=== PATIENT | female | born 1990 | race Two or more races ===

== ENCOUNTER 2020-01-08 23:16 | Emergency (ER) | payer OTHER ==
[~2020-01-08] VITALS: Ht 157.5 cm; Wt 80.0 kg
--- NOTE | 2020-01-08 23:43 | NUR ---
PT HAS RESPIRATORY SYMPTOM. DISCUSSED WITH PROVIDER TO WAIT UNTIL PT HAS ROOM, THEN US CAN BE DONE AT BED SIDE - US DELAY
[2020-01-08 23:51] LABS: BASOPHILS % (AUTO) 1 % (0-1); EOSINOPHILS % (AUTO) 0 % (1-7); LYMPHOCYTES % (AUTO) 16 % (22-44); MD NO; MEAN CORPUSCULAR HEMOGLOBIN 30.4 pg (27.0-34.8); MEAN PLATELET VOLUME 8.5 fL (7.4-10.4); MONOCYTES % (AUTO) 6 % (2-9); NEUTROPHILS % (AUTO) 77 % (42-75); PLATELET COUNT 379 x10^3/uL (130-400); RED BLOOD COUNT 5.06 x10^6/uL (3.82-5.3); RED CELL DISTRIBUTION WIDTH 13.1 % (9.6-15.2)
[2020-01-09 00:02] LABS: ALANINE AMINOTRANSFERASE 176 U/L (12-78); ALBUMIN 4.1 g/dL (3.4-5.0); ANION GAP 10 mmol/L (5-15); CALCIUM 8.9 mg/dL (8.5-10.1); CHLORIDE 104 mmol/L (98-107); CREATININE 0.78 mg/dL (0.55-1.02)
[2020-01-09 00:07] LABS: ALKALINE PHOSPHATASE 102 U/L (45-117); BILIRUBIN,TOTAL 0.9 mg/dL (0.2-1.0); TOTAL PROTEIN 8.9 g/dL (6.4-8.2)
--- NOTE | 2020-01-09 00:20 | NUR ---
JUNIOR PARALEGAL: PT WALKED BACK FROM LOBBY TO ROOM AT THIS TIME.
[2020-01-09] MEDS ORDERED: LORazepam 1MG TABLET ONE (00:41)
--- NOTE | 2020-01-09 00:45 | NUR ---
PT STATES SHE HAD AN IUD PLACED SEVERAL DAYS AGO AND SINCE THEN HAS HAD INCREASING VAG BLEEDING AND INCREASING ANXIETY. PT WITH RAPID HR AND RAPID BREATHING. PT ATTACHED TO ALL MONITORS. PT VERBALIZES ANXIETY IS BIGGEST COMPLAINT. 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 US NOW AT BEDSIDE FOR IMAGING.
[2020-01-09 00:56] LABS: MICROSCOPIC INDICATED
[2020-01-09] MEDS ORDERED: LORazepam 1MG TABLET PO ONE (01:00)
--- NOTE | 2020-01-09 01:11 | NUR ---
US IN PROGRESS
--- NOTE | 2020-01-09 01:25 | NUR ---
pt states she feels much better after ativan. pt visibly less anxious
[2020-01-09] MEDS ORDERED: ACETAMINOPHEN 325 MG TABLET PO ONE (01:30)
[2020-01-09] MEDS ORDERED: CEFTRIAXONE 1,000 MG IM ONE (02:00)
[2020-01-09] MEDS ORDERED: PHENAZOPYRIDINE 200 MG TABLET PO ONE (02:00)
[2020-01-09] MEDS ORDERED: PHENAZOPYRIDINE 200 MG TABLET ONE (02:24)
[2020-01-09] MEDS ORDERED: ACETAMINOPHEN 325 MG TABLET ONE (02:24)
[2020-01-09] MEDS ORDERED: CEFTRIAXONE 1,000 MG ONE (02:24)
[2020-01-09] MEDS ORDERED: LIDOCAINE-MPF 1%, 2ML ONE (02:25)
[2020-01-09 02:35] VITALS: BP 131/86
--- NOTE | 2020-01-09 02:44 | NUR ---
JANIYA DID A PELVIC EXAM AND REMOVED IUD PER PT REQUEST. PT TOLERATED WELL. RESTING COMFORTABLY ON RNEY.
== END 2020-01-09 03:07 | disposition home or self-care (01) ==
LOC: ED 01-09 01:46
DX: N93.9 Abnormal uterine and vaginal bleeding, unspecified (principal); N30.00 Acute cystitis without hematuria; F41.1 Generalized anxiety disorder; R00.0 Tachycardia, unspecified; R10.2 Pelvic and perineal pain
CPT/HCPCS: 36415; 76830; 80053; 81001; 84703; 85025; 87086; 93005; 96372; 99285; J0696